=== PATIENT | male | born 1955 ===

== ENCOUNTER 2016-12-20 10:24 | Day surgery (SDC) | payer MEDICAID ==
[2016-12-18 10:05] VITALS: BMI 28.8
[2016-12-20] MEDS ORDERED: Lactated Ringer's 1,000 ML IV ONE ×2 (13:02)
[2016-12-20] MEDS ORDERED: Ciprofloxacin 400mg/200ml D5W 400 MG/200 ML BAG IVPB ONE (13:18)
[2016-12-20] MEDS ORDERED: Propofol 10 mg/ml Inj (20 ML) ONE (13:25)
[2016-12-20] MEDS ORDERED: HYDROmorphone 0.5 mg/0.5 ml ISec IVP PRN (13:42)
[2016-12-20 15:15] VITALS: BP 151/92
[2016-12-20 15:27] VITALS: PULSE 75; RESP 18; TEMP 97.5; O2SAT 100
--- NOTE | 2016-12-21 02:20 | OP ---
PROCEDURE DATE: 12/20/2016 PREOPERATIVE DIAGNOSIS: Prostatic hypertrophy, stricture, rule out obstruction. 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 PROCEDURE: Cysto dilatation while the patient in lithotomy position. After starting anesthesia, genitalia prepped and draped in the sterile fashion. Cysto revealed a mild stricture in the bulbous urethra. This dilated prostatic urethra 3.5 cm with bilateral lobe enlargement and median lobe with the bilateral going into the intravesical area. While the scope in the zero, there was obstruction of the prostatic urethra. Bladder itself trabeculated 2+. No tumor, no stone. * * within normal limits. Trigone within normal limits. Urethra dilated. The patient tolerated the procedure well. We will be giving Flomax and antibiotic and follow up in my office. Fredy Miranda MD
== END 2016-12-20 15:51 | disposition home or self-care (01) ==
LOC: C.SDS 10:24
PROVIDERS: ATTEND Specialist
DX: N40.1 Benign prostatic hyperplasia with lower urinary tract symptoms (principal); R39.82 Chronic bladder pain; N13.8 Other obstructive and reflux uropathy; N35.9 Urethral stricture, unspecified